=== PATIENT | male | born 1970 | race Caucasian/White ===

== ENCOUNTER 2017-01-28 20:20 | Emergency (ER) | payer OTHER ==
[~2017-01-28] VITALS: Ht 172.7 cm; Wt 83.9 kg
[~2017-01-28 20:20] MED LIST: CRESTOR10 MG PO
[2017-01-28 20:49] LABS: HEMATOCRIT 43.4 % (38.0-50.0); MCH 28.1 PG (29.0-34.0); MCHC 33.6 G/DL (30.0-36.0); MCV 83.6 FL (86-99); MEAN PLAT.VOLUME 10.3 uM^3 (9.0-12.4); PLATELET COUNT 277 K/uL (156-360); RBC DIS.WIDTH-CV 12.3 % (11.8-14.6); RBC DIS.WIDTH-SD 37.5 % (39-53); RED BLOOD COUNT 5.19 M/uL (4.00-5.50)
[2017-01-28 20:50] LABS: WHITE BLOOD COUNT 5.5 K/uL (4.1-10.2)
[2017-01-28 20:58] LABS: CHLORIDE 106 mEq/L (99-109); SODIUM 141 mEq/L (136-147)
[2017-01-28 21:00] LABS: GLUCOSE 95 mg/dL (70-99); POTASSIUM 3.8 mEq/L (3.7-5.4)
[2017-01-28 21:01] LABS: ANION GAP 10 MEQ/L (2-14)
[2017-01-28 21:04] LABS: GFR ESTIMATE (CALCULATED) > 59 mL/min/; UREA NITROGEN (BUN) 12 mg/dL (9-23)
[2017-01-28 21:12] LABS: TROP-I INTERPRETATION NEGATIVE; TROPONIN-I < 0.01 ng/mL (0.0-0.30)
[2017-01-28] MEDS ORDERED: ZANTAC150 MG PO (21:24)
[2017-01-28 21:45] VITALS: BP 144/78
== END 2017-01-28 21:46 | disposition home or self-care (01) ==
LOC: EME 20:20
DX: R07.89 Other chest pain (principal); R13.10 Dysphagia, unspecified; Z91.030 Bee allergy status
CPT/HCPCS: 71020; 80048; 84484; 85027; 93005; 99281; 99284

== ENCOUNTER 2017-08-15 14:42 | Emergency (ER) | payer OTHER ==
[~2017-08-15] VITALS: Ht 172.7 cm; Wt 78.4 kg
[~2017-08-15 14:42] MED LIST changes: +ZANTAC150 MG PO
[2017-08-15 15:22] LABS: EOSINOPHIL (%) 0.1 % (0-5); HEMATOCRIT 39.1 % (38.0-50.0); IMMATURE GRANULOCYTE (%) 0.2 % (0.0-0.7); INSTRUMENT ABS NEUTROPHIL CT 10.7 K/uL; LYMPHOCYTE COUNT 0.9 K/uL (1.0-2.8); MCH 28.5 PG (29.0-34.0); MCHC 34.8 G/DL (30.0-36.0); MCV 81.8 FL (86-99); MEAN PLAT.VOLUME 10.7 uM^3 (9.0-12.4); MONOCYTE (%) 4.6 % (3-12); MONOCYTE COUNT 0.6 K/uL (0-0.8); NEUTROPHIL (%) 87.5 % (45-76); NEUTROPHIL COUNT 10.7 K/uL (1.8-6.4); PLATELET COUNT 240 K/uL (156-360); RBC DIS.WIDTH-CV 12.1 % (11.8-14.6); RBC DIS.WIDTH-SD 36.4 % (39-53); RED BLOOD COUNT 4.78 M/uL (4.00-5.50); WHITE BLOOD COUNT 12.2 K/uL (4.1-10.2)
[2017-08-15 15:23] LABS: ADD MIUA? YES; BILIRUBIN NEGATIVE; BLOOD MODERATE; COLOR YELLOW ((YELLOW)); GLUCOSE (STRIP) NEGATIVE; KETONES NEGATIVE; LEUKOCYTES NEGATIVE; NITRITE NEGATIVE; PROTEIN (STRIP) 30; SPECIFIC GRAVITY 1.021 (1.000-1.030); UROBILINOGEN 0.2 MG/DL (0.2-1.0)
[2017-08-15 15:28] LABS: BACTERIA NONE SEEN /HPF; EPITHELIAL CELLS NONE SEEN /HPF; MUCUS 1+ /LPF; RED BLOOD CELLS 30-40 /HPF (0-5); WHITE BLOOD CELLS 0-5 /HPF (0-5)
[2017-08-15 15:31] LABS: CHLORIDE 100 mEq/L (99-109); POTASSIUM 4.3 mEq/L (3.7-5.4); SODIUM 133 mEq/L (136-147)
[2017-08-15 15:33] LABS: GLUCOSE 112 mg/dL (70-99)
[2017-08-15 15:34] LABS: ANION GAP 13 MEQ/L (2-14)
[2017-08-15 15:37] LABS: GFR ESTIMATE (CALCULATED) 54 mL/min/
[2017-08-15 15:38] LABS: UREA NITROGEN (BUN) 14 mg/dL (9-23)
[2017-08-15] MEDS ORDERED: PERCOCET 5/31 TABLET PO (16:28)
[2017-08-15] MEDS ORDERED: FLOMAX0.4 MG PO (16:28)
[2017-08-15] MEDS ORDERED: ZOFRAN ODT4 MG PO (16:28)
[2017-08-15 16:37] VITALS: BP 173/85
== END 2017-08-15 16:44 | disposition home or self-care (01) ==
LOC: EME 14:42
PROVIDERS: Physician Assistant
DX: N13.2 Hydronephrosis with renal and ureteral calculous obstruction (principal); Z87.442 Personal history of urinary calculi; E78.5 Hyperlipidemia, unspecified; Z88.0 Allergy status to penicillin; Z91.030 Bee allergy status
CPT/HCPCS: 74176; 80048; 81003; 85025; 99281; 99285; J1885; J2405; J3010; J7030